=== PATIENT | female | born 1960 | race Caucasian/White ===

== ENCOUNTER 2017-04-01 08:03 | Day surgery (SDC) | payer OTHER ==
[~2017-04-01] VITALS: Ht 154.9 cm; Wt 80.7 kg
[2017-04-01] MEDS ORDERED: IOHEXOL 350 MG/ML 50 ML BTL (for Cath Lab) OTHER ONE (08:04)
[2017-04-01 08:45] VITALS: BP 125/78; PULSE 67; RESP 18; O2SAT 96
[2017-04-01] MEDS ORDERED: OMEP40CA2 (08:52)
[2017-04-01] MEDS ORDERED: MULT1LOZ BUCCAL (08:52)
[2017-04-01] MEDS ORDERED: BACL10TA PO (08:52)
[2017-04-01] MEDS ORDERED: COEN1CAP (08:52)
[2017-04-01] MEDS ORDERED: VENTAER INH (08:52)
[2017-04-01] MEDS ORDERED: FLUO40CA PO (08:52)
[2017-04-01] MEDS ORDERED: IMIT100T PO (08:52)
[2017-04-01] MEDS ORDERED: PRED10 PO (08:52)
[2017-04-01] MEDS ORDERED: ACET300T2 PO (08:52)
[2017-04-01] MEDS ORDERED: DULE200A INH (08:52)
[2017-04-01] MEDS ORDERED: DICL75TA PO (08:52)
[2017-04-01] MEDS ORDERED: TOPI200T7 PO (08:52)
[2017-04-01] MEDS ORDERED: ROSU40 PO (08:52)
[2017-04-01] MEDS ORDERED: MONT10TA4 PO (08:52)
[2017-04-01] MEDS ORDERED: ALBU0.63 NEB (08:52)
[2017-04-01] MEDS ORDERED: LORazepam 1 MG TAB PO SCH (09:15)
[2017-04-01] MEDS ORDERED: NS 1000P @30 MLS/HR (KVO) IV SCH (09:15)
[2017-04-01] MEDS ORDERED: MIDAZOLAM HCL 2 MG/2 ML VIAL ONE (10:05)
[2017-04-01] MEDS ORDERED: HEPARIN-NS/PF FLUSH BAG 2,000 ML IV FLUSH ONE (10:05)
--- NOTE | 2017-04-01 10:49 | CATHPROC ---
[employer] HIS Report Study Information Study Number Admission Scheduled Start Study Start [id number] Apr 01 2017 8:03AM 04/01/2017 Apr 01 2017 9:48AM [facility]iac Catheterization Admit Source Facility Department Other [facility] - Research And Evaluation Analyst Physician and Clinical Staff Initial Deacon Sy Quarry Boss Gemma Griffith,RN Recorder Lovely French ,RT(R) Recorder Gemma Layton,RT(R) Scrub Bárbara Bhat,TYRE RETREADER TECH2 Procedures Performed Procedure Location (Site) Vessel Name Coronary Angiograms LCA Left Coronary Coronary Angiograms RCA Right Coronary L Heart Cath Equipment Time Gis Instructor Description Size Mfg Part Number Used/Scraped TRANSDUCER, TRUWAVE [id number] 09:57 ALY MENA * Used W/STOCKCOCK *[id number] [id number] *[id number] 534-618T *[id number] [id number] *[id number] 09:57 Code Climate PACK, CCL CUSTOM * Used *[id number] 09:57 Code Climate SUPPORT, ARTERIAL ADULT [id number] *[id number] Used [id number] 09:57 payasUgym PACER PEN, SKIN DUAL W/ RULER * Used *[id number] 10:30 MEDTRONIC JR 5.0 DXTERITY CATHETER fr 5 [id number] Used 10:31 MEDTRONIC JR 5.0 DXTERITY CATHETER fr 5 [id number] Used BAND, RADIAL COMPRESSION TR [id number] 10:37 HitchedPic 24CM Used SHORT 24 *[id number] SHEATH, FR6 RADIAL PRELUDE 09:57 HitchedPic FR 6 [id number] Used EASE 11CM [id number] 09:57 HitchedPic WIRE, EXCHANGE 260CM 3MMJ 260CM Used *[id number] 09:57 NYCOMED OMNIPAQUE, 350 MG, 150ML 150ML [id number] Used [id number] 09:57 BLUM MEDICAL BLANKET,WARM AIR CCL * Used *[id number] SHEATH, FR6 TRANSRADIAL RM*[id number] 10:29 TERCoursmos MEDICAL FR 6 Used SLENDER 10CM *[id number] Equipment Model, Serial, Lot Number and Expiration Data Description Model Number Serial Number Lot Number Expiration Date JR 5.0 DXTERITY CATHETER [id number] 08-27-2019 History: Current Medications Medication Dosage/Unit Route Frequency Last Date/Time Taken CRESTOR PREDNISONE History: Allergies Allergy Reaction pregabalin Fatigue History: Risk Factors Family History of Hypertension Dyslipidemia Previous PA Previous Heart Failure Premature CAD Yes Yes Yes No Yes Prior Valve Prior PCI Prior CABG Surgery No No No Cerebrovascular Peripheral Artery Chronic Lung On Dialysis Diabetes Disease Disease Disease No No No Yes No History: Symptoms/Diagnosis Selection Items Chest pain SOB History: Other Disease Selection Items Gerd History: Other Current Smoker No Labs Hgb (g/dl) Hct (%) WBC (l/cumm) Platelets (thousands) 11.60-17.00 35.00-51.00 4.00-11.00 150.00-450.00 12.1 36.8 6.3 218 Glucose (mg/dl) BUN (mg/dl) Creatinine (mg/dl) BUN:Creatinine (1:x) 74.00-106.00 7.00-18.00 0.50-1.30 10.00-20.00 83 22 0.8 27.5 Na (meq/l) K (meq/l) 136.00-145.00 3.50-5.10 145 4.3 INR (PTT:PT) 0.90-1.10 1 CPK-MB (ng/ML) 0.50-3.60 Not Drawn Medication Medication Total Dose (Bolus/Oral) Medication Total Dosage/Unit 1% XYLOCAINE 10 mL HEPARIN 3000 units NTG (IC) 200 mcg VERSED 1 mg Medications (Bolus/Oral) Medication Time Given Dosage/Unit Administered By Reason VERSED 04/01/2017 10:20:00 AM 1 mg Gemma Griffith 1 mg VERSED given in lab by Gemma Griffith RN in Left Hand via Peripheral IV. Ordered by Dre Ferguson. 1% XYLOCAINE 04/01/2017 10:23:39 AM 10 mL Deacon Ferguson 10 mL 1% XYLOCAINE given in lab by Deacon Ferguson in Right Radial via Subcutaneous. Ordered by Deacon Ferguson. HEPARIN 04/01/2017 10:28:20 AM 3000 units Deacon Ferguson 3000 units HEPARIN given in lab by Deacon Ferguson in Left Hand via Peripheral IV. Ordered by Jorge A Ferguson. NTG (IC) 04/01/2017 10:29:42 AM 200 mcg Deacno Ferguson 200 mcg NTG (IC) given in lab by Deacon Ferguson in Right Radial via Intra-coronary. Ordered by Deacon Ferguson. Medication (Drip) Medication Time Given Dosage/Unit Concentration/Unit Diluent (ml) Solution IV Solutions 04/01/2017 9:59:07 AM 50 mL (IV) NaCl .9 Patient arrived on IV Solutions in Left Hand via Peripheral IV. Pump/Drip Flow using NaCl .9. Initial Case Assessment Cardiovascular HR NIBP Chest Pain 55 135/80 0 Edema Present Skin color Skin None Normal Warm Dry Circulatory - Right Pulses Dorsalis Pedis Femoral Radial 1 2 2 Scale (0,1,2,3,4,d) Scale (0,1,2,3,4,d) Neurological State Oriented to time-place- Alert Moves all extremities person Respiration - General Respiration Rate SpO2 (%) (B/min) 11 97 Final Case Assessment Cardiovascular HR NIBP Chest Pain 71 134/82 0 Edema Present Skin color Skin None Normal Warm Dry Circulatory - Right Pulses Dorsalis Pedis Femoral Radial 1 2 2 Scale (0,1,2,3,4,d) Scale (0,1,2,3,4,d) Neurological State Oriented to time-place- Alert Moves all extremities person Respiration - General Respiration Rate SpO2 (%) (B/min) 17 97 Chronological Log Time Study Chronological Log 9:58:44 Patient arrived via Bed. 9:58:45 Patient Name, D.O.B, / Armband Verified By R.N. 9:58:46 Consent signed by the physician and the patient and verified by the Research And Evaluation Analyst staff. 9:58:49 Verbal Stimulation=2 Physical Stimulation=2 Airway=2 Respiration=2 TOTAL=8. (0=absent, 1=morataya ited, 2=present) 9:58:53 Allens test performed on the right radial and ulnar artery. 9:59:00 Patient has been NPO for More than 6Hrs. 9:59:01 Skin Breakdown- none per patient 9:59:02 Patient Warmer Placed on the Table. 9:59:04 Hugh Prominences Protected 9:59:06 A # 20 IV was noted in the Hand (left). Grade = 0 9:59:07 Patient arrived on IV Solutions in Left Hand via Peripheral IV. Pump/Drip Flow using NaCl .9 . 9:59:07 History and physical on the chart or being dictated. Assessment: Initial Case, HR=55 BPM, RJQO=318/80 mmhg, Chest Pain=0, Edema=None, Color=Normal, Skin = Warm, Dry 9:59:08 Right Pulses: Dwight Ped=1, Femoral=2, Radial=2 Neurological: State=Alert, Ox3, KNIGHT Respiration: Resp=11 B/min, SpO2=97 % Vitals capture started with the following parameters, Patient=Adult, Interval=5 min, Initial Pr ovizhw=552 mmHg, 10:04:49 Deflation Rate=5 mmHg, Cuff placed on Left Arm 10:05:27 HR=54 bpm, QFZX=551/80 mmhg, SpO2=96.0 %, Resp=16 B/min, Pain=0, Sendy=10, Marie=2 10:06:49 Reference ECG taken 10:10:26 HR=57 bpm, SJOD=881/69 mmhg, SpO2=96.0 %, Resp=17 B/min, Pain=0, Sendy=10, Marie=2 10:12:28 Right Radial and groin(s) prepped with 2% chlorhexidine, and draped after a 3 min. waiting time. 10:15:21 HR=58 bpm, LZJO=073/81 mmhg, SpO2=96.0 %, Resp=11 B/min, Pain=0, Sendy=10, Marie=2 10:16:27 MD paged 10:18:44 MD responded 10:19:12 MD arrived. 10:19:51 Pressure channel 1 zeroed. 10:20:00 1 mg VERSED given in lab by Gemma Griffith RN in Left Hand via Peripheral IV. Ordered by Deacon Hurley. 10:21:05 HR=58 bpm, VDNQ=401/65 mmhg, SpO2=96.0 %, Resp=17 B/min, Pain=0, Sendy=10, Marie=2 Time Out. Correct patient, correct procedure, correct physician, power injector not loaded with contrast with surgical 10:22:25 team present. Time Out Concurred by MD and individual staff in procedure. 10:23:26 Case Start 10:23:39 10 mL 1% XYLOCAINE given in lab by Deacon Ferguson in Right Radial via Subcutaneous. Ordered by Deacon Ferguson. 10:25:23 HR=57 bpm, BWQA=185/77 mmhg, SpO2=96.0 %, Resp=17 B/min, Pain=0, Sendy=10, Marie=2 10::44 Access site was Rigth Radial Artery. A SHEATH, FR6 TRANSRADIAL SLENDER 10CM FR 6 was advanced into the Radial (right) using the Perc utaneous ::59 technique. 10:28:20 3000 units HEPARIN given in lab by Deacon Ferguson in Left Hand via Peripheral IV. Ordered b y Deacon Ferguson. 10:29:42 200 mcg NTG (IC) given in lab by Deacon Ferguson in Right Radial via Intra-coronary. Ordered by Deacon Ferguson. A JR 5.0 DXTERITY CATHETER fr 5 was advanced over a wire. OMNIPAQUE, 350 MG, 150ML 150ML was us ed for 10:30:21 injections. 10:30:22 HR=72 bpm, HABT=932/83 mmhg, SpO2=95.0 %, Resp=14 B/min, Pain=0, Sendy=10, Marie=2 Recorded Pressure: LV, HR=78, Condition=Condition 1 10:31:18 (Left Ventricle) LV 130/4/9 Recorded Pressure: LV, Ao, HR=73, Condition=Condition 1 10:31:37 (Left Ventricle) LV 142/29/17, (Aorta) Ao 149/94/118 10:32:08 The RCA was injected and visualized at various angles. OMNIPAQUE, 350 MG, 150ML 150ML used . 10:32:47 Catheter was removed A JL 3.5 INFINITI CATHETER FR 5 was advanced over a wire. OMNIPAQUE, 350 MG, 150ML 150ML was u sed for 10:32:53 injections. 10:34:37 The LCA was injected and visualized at various angles. OMNIPAQUE, 350 MG, 150ML 150ML use d. 10:35:21 HR=72 bpm, YGIM=457/82 mmhg, SpO2=95.0 %, Resp=19 B/min, Pain=0, Sendy=10, Marie=2 10:35:24 Catheter was removed 10:35:43 Case End Assessment: Final Case, HR=71 BPM, ZBRY=892/82 mmhg, Chest Pain=0, Edema=None, Color=Normal, S kin = Warm, Dry 10:36:02 Right Pulses: Dwight Ped=1, Femoral=2, Radial=2 Neurological: State=Alert, Ox3, KNIGHT Respiration: Resp=17 B/min, SpO2=97 % 10:36:04 Catheter(s) removed without difficulty Radial Compression Device Used. 15 mLs of air placed in BAND, RADIAL COMPRESSION TR SHORT 24 2 4CM. Affected 10:36:06 hand 98 % O2 saturation. 10:36:11 No case complications noted. 10:36:15 Cine recording checked. 10:36:15 Bedside Report will be given. 10:36:21 Contrast Scanned 10:36:28 A Left Heart Cath was performed. 10:40:26 HR=56 bpm, VYPJ=821/75 mmhg, SpO2=96.0 %, Resp=11 B/min, Pain=0, Sendy=10, Marie=2 10:44:09 Patient moved to stretcher 10:45:01 Vitals capture stopped. End Study - Contrast Media Used In Study Contrast Total Opened (mL) Total Used (mL) Total Wasted (mL) Omnipaque 40 40 0 End Study - Maximum Contrast Load Max Contrast Load (mL) 504.3 End Study - Radiation Exposure Fluoro Time (minutes) 1.7 End Study - Sheaths Sheaths Pulled By Sheath Hold Time (min) Bárbara Bhat End Study - Patient Disposition Complications Transferred To Interventional Outcome No Research And Evaluation Analyst Holding No attempt made
[2017-04-01] MEDS ORDERED: BACITRACIN OINT 0.9 GM PKT TOP ONE (11:00)
[2017-04-01] MEDS ORDERED: MISC INFORMATION XX ONE (11:00)
--- NOTE | 2017-04-01 11:18 | MA ---
cc: MICHAEL BERTRAND DATE 04/01/2017 INDICATION FOR PROCEDURE Unstable angina. PROCEDURE PERFORMED 1. Fluoroscopy with interpretation. 2. Coronary angiography. 3. Left heart catheterization. METHOD The risks, benefits and alternatives were discussed with the patient. The patient understood and consented to the procedure. The patient was brought into the catheterization lab and placed on the catheterization table. The right wrist was prepped and draped in a sterile fashion. The right wrist was prepped and draped in a sterile fashion. The right wrist was anesthetized with 2% lidocaine. The right radial artery is cannulated and a 6 Lithuanian, 7 cm sheath was placed without difficulty. HEMODYNAMICS Intraventricular hemodynamics measured 120/10 mmHg. CORONARY ANGIOGRAPHY 1. Left main coronary is angiographically normal. 2. Left anterior descending coronary is angiographically normal giving rise to a diagonal branch that is angiographically normal. 3. Left circumflex is tortuous but angiographically normal. Obtuse marginal branch is angiographically normal. 4. Right coronary is a dominant vessel giving rise to a posterior descending branch. Right coronary is angiographically normal. CONCLUSIONS 1. Angiographically normal coronary arteries. 2. Normal left-sided filling pressures. PLAN The patient's symptoms, although progressive, appear to be noncardiac in origin. She will follow-up with her primary care doctor for any additional testing. MD TRUDY Shaikh/MOE /10:50 AM /11:01 AM
== END 2017-04-01 14:23 | disposition home or self-care (01) ==
LOC: HDOC 08:03 → HDIC 08:03 → HDOC 14:23
PROVIDERS: ATTEND Internal Medicine
DX: I20.0 Unstable angina (principal); R07.89 Other chest pain; E78.5 Hyperlipidemia, unspecified; R73.01 Impaired fasting glucose; F41.9 Anxiety disorder, unspecified; K21.9 Gastro-esophageal reflux disease without esophagitis
CPT/HCPCS: 93454; C1769; C1893; J1644; J2250; J3010; Q9967